=== PATIENT | male | born 1990 | race Caucasian/White ===

== ENCOUNTER 2018-02-24 22:49 | Emergency (ER) | payer MEDICAID ==
[~2018-02-24] VITALS: Ht 190.5 cm; Wt 95.0 kg
[2018-02-24 22:55] VITALS: BP 122/77
== END 2018-02-24 23:12 | disposition home or self-care (01) ==
LOC: ER 22:51
DX: S31.114A Laceration without foreign body of abdominal wall, left lower quadrant without penetration into peritoneal cavity, initial encounter (principal); X99.1XXA Assault by knife, initial encounter; Y93.89 Activity, other specified; Y92.89 Other specified places as the place of occurrence of the external cause; Y99.8 Other external cause status
CPT/HCPCS: 99283

== ENCOUNTER 2021-09-24 14:24 | Emergency (ER) | payer SELFPAY | END 2021-09-24 16:50 | disposition left against medical advice (07) | LOC: ER 14:25 | DX: Z00.8 Encounter for other general examination (principal); Z53.21 Procedure and treatment not carried out due to patient leaving prior to being seen by health care provider ==

== ENCOUNTER 2021-09-28 03:30 | Emergency (ER) | payer SELFPAY ==
[~2021-09-28] VITALS: Ht 190.5 cm; Wt 87.1 kg
[2021-09-28 03:32] VITALS: BP 118/80
[2021-09-28] MEDS ORDERED: SULF1TAB45 PO (07:29)
[2021-09-28] MEDS ORDERED: CEPH-585 PO (07:29)
--- NOTE | 2021-09-28 07:34 | NUR ---
PT GIVEN 2 PAIR OF HOSPITAL SOCKS
== END 2021-09-28 07:50 | disposition home or self-care (01) ==
LOC: ER 03:30
DX: T69.022A Immersion foot, left foot, initial encounter (principal); T69.021A Immersion foot, right foot, initial encounter; Z79.899 Other long term (current) drug therapy
CPT/HCPCS: 99283